=== PATIENT | male | born 1955 | race Caucasian/White ===

== ENCOUNTER 2018-07-05 12:59 | Observation (INO) | payer OTHER ==
[~2018-07-05] VITALS: Ht 172.7 cm; Wt 91.4 kg
[~2018-07-05 12:59] MED LIST: ASPIRIN81 M2 PO; ASTEPRO 0.15%30 ML BOTH NARES; COREG3.125 M1 PO; CRESTOR20 MG PO; PLAVIX75 MG PO; ZESTRIL2.5 MG PO
[2018-07-05 13:40] LABS: BASOPHIL (%) 0.3 % (0-1); EOSINOPHIL COUNT 0.2 K/uL (0-0.3); HEMOGLOBIN 15.5 G/DL (12.5-16.6); IMMATURE GRANULOCYTE (%) 0.3 % (0.0-0.7); LYMPHOCYTE (%) 3.6 % (15-42); LYMPHOCYTE COUNT 0.5 K/uL (1.0-2.8); MCH 31.1 PG (29.0-34.0); MCHC 35.2 G/DL (30.0-36.0); MCV 88.2 FL (86-99); MONOCYTE (%) 4.2 % (3-12); MONOCYTE COUNT 0.6 K/uL (0-0.8); NEUTROPHIL (%) 90.6 % (45-76); NEUTROPHIL COUNT 13.2 K/uL (1.8-6.4); PLATELET COUNT 215 K/uL (156-360); RBC DIS.WIDTH-SD 42.5 % (39-53); RED BLOOD COUNT 4.99 M/uL (4.00-5.50); WHITE BLOOD COUNT 14.6 K/uL (4.1-10.2)
[2018-07-05 13:49] LABS: CHLORIDE 110 mEq/L (99-109); POTASSIUM 4.7 mEq/L (3.7-5.4); SODIUM 141 mEq/L (136-147)
[2018-07-05 13:51] LABS: GLUCOSE 115 mg/dL (70-99)
[2018-07-05 13:54] LABS: GFR ESTIMATE (CALCULATED) > 59 mL/min/ (58.99-99999)
[2018-07-05 13:55] LABS: UREA NITROGEN (BUN) 16 mg/dL (9-23)
[2018-07-05 14:02] LABS: TROP-I INTERPRETATION NEGATIVE; TROPONIN-I < 0.01 ng/mL (0.0-0.30)
[2018-07-05 15:17] LABS: APPEARANCE SL.HAZY ((CLEAR)); BILIRUBIN NEGATIVE; BLOOD SMALL; COLOR YELLOW ((YELLOW)); GLUCOSE (STRIP) NEGATIVE; KETONES NEGATIVE; LEUKOCYTES NEGATIVE; NITRITE NEGATIVE; PROTEIN (STRIP) NEGATIVE; SPECIFIC GRAVITY 1.028 (1.000-1.030); UROBILINOGEN 0.2 MG/DL (0.2-1.0)
[2018-07-05 15:37] LABS: BACTERIA RARE /HPF; EPITHELIAL CELLS RARE /HPF; MUCUS 4+ /LPF; RED BLOOD CELLS RARE /HPF (0-5); UCUL ADDED? NO; WHITE BLOOD CELLS NONE SEEN /HPF (0-5)
[2018-07-05 17:22] VITALS: BP 163/80
[2018-07-05 20:37] LABS: TROP-I INTERPRETATION NEGATIVE; TROPONIN-I 0.02 ng/mL (0.0-0.30)
[2018-07-06 00:04] VITALS: BP 119/67
[2018-07-06 02:53] LABS: TROP-I INTERPRETATION NEGATIVE; TROPONIN-I < 0.01 ng/mL (0.0-0.30)
[2018-07-06 03:36] VITALS: BP 113/58
[2018-07-06 05:40] LABS: HEMATOCRIT 41.2 % (38.0-50.0); MCH 29.9 PG (29.0-34.0); PLATELET COUNT 180 K/uL (156-360); RBC DIS.WIDTH-SD 41.8 % (39-53); RED BLOOD COUNT 4.68 M/uL (4.00-5.50); WHITE BLOOD COUNT 7.6 K/uL (4.1-10.2)
[2018-07-06 06:04] LABS: CHLORIDE 107 MEQ/L (99-109); CREATININE 0.8 MG/DL (0.6-1.3); GFR ESTIMATE (CALCULATED) > 59 mL/min/ (58.99-99999); GLUCOSE 110 mg/dL (70-99); SODIUM 140 MEQ/L (136-147); UREA NITROGEN (BUN) 12 mg/dL (9-23)
[2018-07-06 06:15] LABS: POTASSIUM 3.7 MEQ/L (3.7-5.4)
[2018-07-06 07:39] VITALS: BP 120/62
== END 2018-07-06 12:29 | disposition home or self-care (01) ==
LOC: EME 12:59 → EDOF 16:09 → 4SOUTH 16:09 → ENRESERV 16:10 → 4SOUTH 17:15
PROVIDERS: Emergency Medicine; Hospitalist
DX: R07.9 Chest pain, unspecified (principal); R19.7 Diarrhea, unspecified; I25.10 Atherosclerotic heart disease of native coronary artery without angina pectoris; I25.2 Old myocardial infarction; Z95.5 Presence of coronary angioplasty implant and graft; I10 Essential (primary) hypertension; E78.5 Hyperlipidemia, unspecified; F17.210 Nicotine dependence, cigarettes, uncomplicated; Z79.82 Long term (current) use of aspirin; Z79.02 Long term (current) use of antithrombotics/antiplatelets; D72.829 Elevated white blood cell count, unspecified
CPT/HCPCS: 71045; 74176; 80048; 81003; 84484; 85025; 85027; 87040; 87177; 87329; 87493; 87506; 93005; 99281; 99284; G0378; J1644; J7030